=== PATIENT | male | born 1965 | race Caucasian/White ===

== ENCOUNTER 2018-05-31 15:08 | Emergency (ER) | payer OTHER ==
[~2018-05-31] VITALS: Ht 172.7 cm; Wt 69.0 kg
[2018-05-31 15:10] VITALS: Ht 172.7 cm; Wt 69.0 kg
[2018-05-31] MEDS ORDERED: FER325 PO (16:28)
[2018-05-31] MEDS ORDERED: FURO40TA4 PO (16:29)
[2018-05-31] MEDS ORDERED: HYDR-3672 PO (16:29)
[2018-05-31] MEDS ORDERED: GLIP2.5T PO (16:29)
[2018-05-31] MEDS ORDERED: CARV3.12 PO (16:30)
[2018-05-31] MEDS ORDERED: AMLO-147 PO (16:30)
[2018-05-31] MEDS ORDERED: LOSA100T15 PO (16:30)
[2018-05-31] MEDS: LIDOCAINE 2%/EPI MPF (SDV) 20 ML VIAL INJ STA ×2 (16:58→17:05)
[2018-05-31 18:04] VITALS: BP 150/79; PULSE 85; RESP 12
--- NOTE | 2018-05-31 18:24 | ERD ---
ER Documentation Chief Complaint Chief Complaint pt bib , he bite his tongue after feeling dizzy in HD still bleeding HPI This is a 52-year-old male with a history of end-stage renal disease on hemodialysis every Saturday and Saturday. The patient had a full run of dialysis today. While in the dialysis center he bit his tongue which resulted in a significant amount of bleeding. Contrary to the triage note the patient felt dizzy after biting his tongue. The patient but the right side of his tongue indicate there is a significant amount of bleeding. Afterwards he felt dizzy and lightheaded. Again he did complete a full run of dialysis. He denied a headache. He denies any changes in vision. He denied any chest pain. He had no shortness of breath. ROS All systems reviewed and are negative except as per history of present illness. Medications Home Meds Reported Medications Carvedilol* (Coreg*) 3.125 Mg Tablet, 3.125 MG PO BID, #60 TAB 05/31/18 Amlodipine Besylate* (Amlodipine Besylate*) 10 Mg Tablet, 10 MG PO DAILY, #30 TAB 05/31/18 Losartan Potassium* (Losartan Potassium*) 100 Mg Tablet, 100 MG PO DAILY, TAB 05/31/18 Glipizide* (Glucotrol XL*) 2.5 Mg Tabsr, 2.5 MG PO BID, TAB 05/31/18 Hydralazine Hcl* (Hydralazine Hcl*) 50 Mg Tab, 100 MG PO Q8H PRN for PRN, #120 TAB 05/31/18 Furosemide* (Furosemide*) 40 Mg Tablet, 40 MG PO DAILY, TAB 05/31/18 Ferrous Sulfate* (Ferrous Sulfate*) 325 Mg Tabec, 325 MG PO BID, TAB 05/31/18 Allergies Allergies: Coded Allergies: No Known Allergy (Unverified , 05/31/18) PMhx/Soc History of Surgery: Yes (permacath R chest) Hx Cardiac Disorders: Yes (HTN) Hx Alcohol Use: No Hx Substance Use: No Hx Tobacco Use: No Smoking Status: Never smoker Physical Exam Vitals Vital Signs Date Temp Pulse Resp B/P (MAP) Pulse Ox O2 O2 Flow FiO2 Time Delivery Rate 05/31/18 85 12 150/79 97 Room Air 18:04 (102) 05/31/18 76 13 164/79 96 Room Air 16:41 (107) 05/31/18 97.2 82 16 168/79 98 15:10 (108) Physical Exam Constitutional:Well-developed. Well-nourished. HEENT:Normocephalic. Atraumatic.Pupils were equal round reactive to light. Patient had a significant amount of blood present within the oropharynx. Laceration on the midportion right side of the tongue Neck: No nuchal rigidity. No lymphadenopathy. No posterior cervical spine tenderness or step-offs. Respiratory: Not using accessory muscles of respiration.Lungs were clear to auscultation bilaterally. No rhonchi. No rales. No wheezing. Cardiovascular: Regular rate regular rhythm.No murmurs. No rubs were appreciated.S1, S2 normal. Distal pulses are palpable 2+ bilaterally. Right tunneled chest tunneled catheter for dialysis clean dry and intact GI: Abdomen was soft. Nontender. Non Distended. No pulsatile abdominal masses or bruits. No rebound. No guarding. Bowel sounds were present and normal. Muscle skeletal: Full range of motion of both the upper and lower extremities bilaterally.Normal muscle tone.No assymetrical calf tenderness or swelling. Skin: No petechia, no purpura. No lesions on the palms or the soles of the feet. No maculopapular rash. NEURO: Patient was alert, awake, orientated x3.No facial droop. Gait observed and normal with no ataxia.Speech had regular rate and rhythm. No focal neurological deficits. Results 24 hrs Current Medications Medications Dose Sig/Vicki Start Time Status Last (Trade) Ordered Route PRN Stop Time Admin Dose Reason Admin Lidocaine/ 20 ml ONCE STAT 05/31/18 DC Epinephrine INJ 16:58 (Xylocaine 05/31/18 17:00 2%/ Epi Mpf(Sdv)) Procedures/MDM This is a 52-year-old male that presented to the emergent with a laceration to his tongue. With a significant amount of bleeding. Suction was used to assist in examination to determine the origin of hemorrhage. The patient had a flap laceration that was repaired by myself. A total of 3 cc of 1% lidocaine with epinephrine was used to anesthetize the wound. The analgesic medication had a vasoconstrictor but this did not provide hemostasis. Therefore 4-0 chromic gut was used and 2 [id number] sutures are placed by myself and the patient tolerated the procedure well. Hemostasis was now controlled. Observation Note: Time: 3 1/2 hours Family Hx: Hypertension. The patient was hypertensive in the emergency department upon arrival but there is no evidence of endorgan damage to suggest hypertensive emergency or urgency. Evaluation: Multiple exams showed improving symptoms and no evidence of of strokelike symptoms. Hemostasis was controlled. I did feel that the patient was safe to be discharged home. I do not feel is necessary to obtain an ancillary laboratory work as the patient showed no signs of severe anemia and also the patient had just completed a full run of dialysis. The patient was discharged home in fair condition. They were instructed to return to the emergency department at any time if there was any worsening of their condition. The patient stated they would follow up with their PCP in the next 24-48 hours to initiate a suitable medication regimen under the care of their PCP as well as to allow their PCP to monitor any drug reactions. The patient was discharged home with prescriptions after they gave informed consent to the new medication. They were also fully informed by myself on the adverse effects and adverse drug interactions in order to provide adequate safeguards to prevent possible adverse reactions to medications. Departure Diagnosis: Primary Impression: Active bleeding Additional Impression: Laceration of tongue Encounter type: initial encounter Qualified Codes: S01.512A - Laceration without foreign body of oral cavity, initial encounter Condition: Fair Patient Instructions: Laceration, Lip/Mouth FIORELLA MONTAGUE MD May 31, 2018 18:23
== END 2018-05-31 18:42 | disposition home or self-care (01) ==
LOC: E/R 15:08
DX: S01.512A Laceration without foreign body of oral cavity, initial encounter (principal); N18.6 End stage renal disease; I12.0 Hypertensive chronic kidney disease with stage 5 chronic kidney disease or end stage renal disease; X58.XXXA Exposure to other specified factors, initial encounter; Y92.9 Unspecified place or not applicable; Z79.84 Long term (current) use of oral hypoglycemic drugs; Z99.2 Dependence on renal dialysis
CPT/HCPCS: 41250; Z7502; Z7610